=== PATIENT | female | born 1990 | race Caucasian/White ===

== ENCOUNTER 2017-08-24 06:55 | Emergency (ER) | payer MEDICAID ==
[~2017-08-24] VITALS: Ht 162.6 cm; Wt 78.8 kg
[~2017-08-24 06:55] MED LIST: FERR325T23 PO; HYDR-3240 PO; IBUP-1223 PO; IBUP200T48 PO; OXYC-302 PO; PREN1TAB60 PO
[2017-08-24 06:56] VITALS: BP 114/87
[2017-08-24] MEDS ORDERED: DEXAMETHASONE 4 MG TABLET ONE (07:21)
[2017-08-24] MEDS ORDERED: DEXAMETHASONE 4 MG TABLET PO ONE (07:30)
== END 2017-08-24 08:17 | disposition home or self-care (01) ==
LOC: ED 07:12
DX: J02.0 Streptococcal pharyngitis (principal)
CPT/HCPCS: 99283

== ENCOUNTER 2017-10-05 21:56 | Emergency (ER) | payer MEDICAID ==
[~2017-10-05] VITALS: Ht 160 cm; Wt 80.0 kg
[~2017-10-05 21:56] MED LIST changes: +FERR240T PO; +LEVO125T PO
[2017-10-05 23:36] LABS: HEMATOCRIT 34.4 % (34.6-47.8); HEMOGLOBIN 11.4 g/dL (11.7-16.4)
[2017-10-05 23:37] LABS: BLOOD UREA NITROGEN 9 mg/dL (7-18)
[2017-10-06 00:43] VITALS: BP 101/48
== END 2017-10-06 00:46 | disposition home or self-care (01) ==
LOC: ED 22:55
DX: R00.2 Palpitations (principal)
CPT/HCPCS: 36415; 80048; 82040; 83735; 84443; 85025; 93005; 99285

== ENCOUNTER 2018-04-06 23:42 | Emergency (ER) | payer MEDICAID ==
[~2018-04-06] VITALS: Ht 160 cm; Wt 75.3 kg
[~2018-04-06 23:42] MED LIST changes: -IBUP200T48 PO; +IBUP200T49 PO
[2018-04-06 23:43] VITALS: BP 113/72
== END 2018-04-07 01:00 | disposition home or self-care (01) ==
LOC: ED 04-07 00:42
DX: M76.9 Unspecified enthesopathy, lower limb, excluding foot (principal); E03.9 Hypothyroidism, unspecified; Z90.49 Acquired absence of other specified parts of digestive tract
CPT/HCPCS: 99284

== ENCOUNTER 2018-09-02 01:50 | Emergency (ER) | payer MEDICAID ==
[~2018-09-02] VITALS: Ht 167.6 cm; Wt 60.0 kg
[2018-09-02 01:57] VITALS: BP 132/78
[2018-09-02 03:01] LABS: BASOPHILS # (AUTO) 0.04 x10^3/uL (0-0.1); BASOPHILS % (AUTO) 0 % (0-1); EOSINOPHILS # (AUTO) 0.17 x10^3/uL (0-0.4); EOSINOPHILS % (AUTO) 1 % (1-7); LYMPHOCYTES # (AUTO) 1.88 x10^3/uL (1-3.4); LYMPHOCYTES % (AUTO) 15 % (22-44); MD NO; MEAN CORPUSCULAR HEMOGLOBIN 29.2 pg (27.0-34.8); MEAN CORPUSCULAR HGB CONC 33.9 g/dL (32.4-35.8); MEAN CORPUSCULAR VOLUME 86.2 fL (80-100); MEAN PLATELET VOLUME 9.3 fL (7.4-10.4); MONOCYTES # (AUTO) 1.02 x10^3/uL (0.2-0.8); MONOCYTES % (AUTO) 8 % (2-9); NEUTROPHILS # (AUTO) 9.36 x10^3/uL (1.8-6.8); NEUTROPHILS % (AUTO) 75 % (42-75); PLATELET COUNT 265 x10^3/uL (130-400); RED BLOOD COUNT 4.53 x10^6/uL (3.82-5.3); RED CELL DISTRIBUTION WIDTH 13.6 % (9.6-15.2)
[2018-09-02 03:11] LABS: ALANINE AMINOTRANSFERASE 24 U/L (12-78); ALBUMIN 3.8 g/dL (3.4-5.0); ANION GAP 10 mmol/L (5-15); CALCIUM 8.6 mg/dL (8.5-10.1); CHLORIDE 110 mmol/L (98-107); CREATININE 0.58 mg/dL (0.55-1.02)
[2018-09-02 03:12] LABS: SALICYLATE LEVEL < 1.7 mg/dL (2.8-20.0)
[2018-09-02 03:13] LABS: ALKALINE PHOSPHATASE 73 U/L (45-117); BILIRUBIN,TOTAL 0.7 mg/dL (0.2-1.0); TOTAL PROTEIN 6.9 g/dL (6.4-8.2)
[2018-09-02 03:15] LABS: ACETAMINOPHEN < 2 mcg/mL (10-30)
== END 2018-09-02 05:39 | disposition home or self-care (01) ==
LOC: ED 03:40
DX: R45.851 Suicidal ideations (principal); F17.210 Nicotine dependence, cigarettes, uncomplicated; E03.9 Hypothyroidism, unspecified
CPT/HCPCS: 36415; 80053; 80307; 80329; 85025; 99284; G0480

== ENCOUNTER 2018-11-23 17:21 | Emergency (ER) | payer MEDICAID ==
[~2018-11-23] VITALS: Ht 162.6 cm; Wt 66.3 kg
[2018-11-23] MEDS ORDERED: HYDROcodone/APAP 5/325 TABLET PO ONE (18:00)
[2018-11-23] MEDS ORDERED: HYDROcodone/APAP 5/325 TABLET ONE (18:03)
[2018-11-23 18:32] VITALS: BP 134/82
== END 2018-11-23 18:33 | disposition home or self-care (01) ==
LOC: ED 18:03
DX: K02.9 Dental caries, unspecified (principal); K04.7 Periapical abscess without sinus; E03.9 Hypothyroidism, unspecified; F17.200 Nicotine dependence, unspecified, uncomplicated; Z90.49 Acquired absence of other specified parts of digestive tract
CPT/HCPCS: 99283

== ENCOUNTER 2018-12-08 10:21 | Emergency (ER) | payer MEDICAID ==
[~2018-12-08] VITALS: Ht 160 cm; Wt 68.3 kg
[2018-12-08 10:24] VITALS: BP 116/74
== END 2018-12-08 11:05 | disposition home or self-care (01) ==
LOC: ED 10:58
DX: K08.89 Other specified disorders of teeth and supporting structures (principal); E03.9 Hypothyroidism, unspecified
CPT/HCPCS: 99283